=== PATIENT | female | born 1985 | race Caucasian/White ===

== ENCOUNTER → 2017-11-09 | Outpatient (CLI) | payer MEDICARE, OTHER ==
--- NOTE | 2017-11-09 15:28 | US ---
EXAMINATION TYPE: US liver DATE OF EXAM: 11/09/2017 COMPARISON: NONE CLINICAL HISTORY: R94.5 Abnormal Liver Function. EXAM MEASUREMENTS: Liver Length: 18.2 cm Gallbladder Wall: Surgically absent cm CBD: 0.5 cm Right Kidney: 9.6 x 4.2 x 4.8 cm Technically difficult exam due to midline bowel gas and body habitus Pancreas: visualized portions wnl Liver: difficult to penetrate . There is increased echogenicity of the hepatic parenchyma with dimin ished visualization of the portal triads most commonly relating to hepatic steatosis and limiting angel luation for underlying hepatic masses. Gallbladder: Surgically absent CBD: wnl Right Kidney: No hydronephrosis or masses seen IMPRESSION: 1. Findings most commonly related to hepatic steatosis, overall appearing mild in degree. 2. Surgical absence of the gallbladder. No common bile duct dilatation.
== END | disposition home or self-care (01) ==
LOC: RADUSWWP 14:10
PROVIDERS: ATTEND Family Medicine
DX: R94.5 Abnormal results of liver function studies (principal); Z90.49 Acquired absence of other specified parts of digestive tract
CPT/HCPCS: 76705

== ENCOUNTER 2018-05-12 11:55 | Emergency (ER) | payer MEDICARE, OTHER ==
[2018-05-12 12:01] VITALS: RESP 18; TEMP 98.2
[2018-05-12] MEDS ORDERED: SODIUM CHLORIDE 0.9% 1,000 ML IV STA ×2 (12:29)
[2018-05-12] MEDS ORDERED: KETOROLAC 30 MG/ML 1 ML VIAL IVP STA (12:55)
[2018-05-12] MEDS ORDERED: ONDANSETRON 4 MG/2 ML VIAL IVP STA (12:55)
[2018-05-12] MEDS ORDERED: SODIUM CHLORIDE 0.9% 1,000 ML IV ONE (12:55)
--- NOTE | 2018-05-12 12:57 | ED ---
Pediatric GI HPI - General Chief Complaint: Abdominal Pain Stated Complaint: vomiting/side pain Time Seen by Provider: 05/12/18 12:08 Source: patient, RN notes reviewed, old records reviewed Mode of arrival: ambulatory Limitations: no limitations - History of Present Illness Initial Comments: Patient is a 32-year-old female presents emergency room states. Nausea vomiting times one day. She reports she started vomiting last night. She complains of some back in abdominal discomfort. She denies any bloody stools or bloody emesis. Patient states that she's initiating urine UTI. She reports that she is not . She denies any other complaints. MD Complaint: nausea/vomiting - Related Data Home Medications Medication Instructions Recorded Confirmed Cetirizine HCl [Zyrtec] 10 mg PO DAILY 05/12/18 05/12/18 Cholestyramine/Aspartame [Questran 210 gm PO DAILY 05/12/18 05/12/18 Light Powder] Montelukast Sodium [Singulair] 10 mg PO DAILY 05/12/18 05/12/18 Norgestimate-Ethinyl Estradiol 1 tab PO DAILY 05/12/18 05/12/18 [Ortho Tri-Cyclen 28 Tablet] Ranitidine HCl [Zantac] 150 mg PO DAILY 05/12/18 05/12/18 Previous Rx's Medication Instructions Recorded Acetaminophen-Codeine 300-30mg 1 tab PO Q6H PRN 3 Days #12 tablet 05/12/18 [Tylenol w/codeine #3] Ondansetron [Zofran ODT] 4 mg PO Q8HR #20 tab 05/12/18 Tamsulosin [Flomax] 0.4 mg PO DAILY #10 cap 05/12/18 Allergies Allergy/AdvReac Type Severity Reaction Status Date / Time terbinafine [From Lamisil] Allergy Rash/Hives Verified 05/12/18 12:28 diazepam [From Valium] AdvReac Rapid Verified 05/12/18 12:28 Heart Rate Review of Systems ROS Statement: Those systems with pertinent positive or pertinent negative responses have been documented in the HPI. ROS Other: All systems not noted in ROS Statement are negative. Past Medical History Past Medical History: No Reported History Past Surgical History: Cholecystectomy, Orthopedic Surgery Additional Past Surgical History / Comment(s): right foot surgery, eye surgery Past Psychological History: Anxiety, Depression Smoking Status: Never smoker Past Alcohol Use History: None Reported Past Drug Use History: None Reported General Exam - General Exam Comments Initial Comments: This is a 32-year-old female. Alert and oriented 3. No significant distress. Limitations: no limitations General appearance: alert, in no apparent distress Eye exam: Present: normal appearance, PERRL, EOMI. Absent: scleral icterus, conjunctival injection, periorbital swelling ENT exam: Present: normal exam, mucous membranes moist Neck exam: Present: normal inspection. Absent: tenderness, meningismus, lymphadenopathy Respiratory exam: Present: normal lung sounds bilaterally. Absent: respiratory distress, wheezes, rales, rhonchi, stridor Cardiovascular Exam: Present: regular rate, normal rhythm, normal heart sounds. Absent: systolic murmur, diastolic murmur, rubs, gallop, clicks GI/Abdominal exam: Present: soft, tenderness (Left lower quadrant tenderness.), normal bowel sounds. Absent: distended, guarding, rebound, rigid Extremities exam: Present: normal inspection, full ROM, normal capillary refill. Absent: tenderness, pedal edema, joint swelling, calf tenderness Back exam: Present: normal inspection Neurological exam: Present: alert, oriented X3, CN II-XII intact Psychiatric exam: Present: normal affect, normal mood Skin exam: Present: warm, dry, intact, normal color. Absent: rash Course Vital Signs 05/12/18 05/12/18 11:58 15:34 Temperature 98.2 F Pulse Rate 84 85 Respiratory 18 18 Rate Blood Pressure 150/113 129/82 O2 Sat by Pulse 98 100 Oximetry Medical Decision Making - Medical Decision Making Patient is a 32-year-old female with 1 day of vomiting. She claims of some back and left lower quadrant pain. Lab work was reviewed. Leukocytosis noted likely related to patient's vomiting. Lab work including taking function liver function was normal. Urinalysis is positive for blood. Concern for a kidney stone. Patient had a computed tomography scan of her abdomen pelvis without contrast. Patient's CT shows a distal left ureter calculus measuring 3 mm. Patient advised this will pass without difficulty. I did discharge the Patient with a short course of pain medicine and nausea medicine and Flomax. Given doses in emergency department. Patient will be discharged to follow up with urology. All questions answered return parameters were discussed. Patient appears clinically well on discharge. - Lab Data Result diagrams: 05/12/18 12:40 05/12/18 12:40 Lab Results 05/12/18 05/12/18 05/12/18 Range/Units 12:40 12:40 12:40 WBC 18.9 H (3.8-10.6) k/uL RBC 4.82 (3.80-5.40) m/uL Hgb 14.0 (11.4-16.0) gm/dL Hct 42.9 (34.0-46.0) % MCV 89.1 (80.0-100.0) fL MCH 29.2 (25.0-35.0) pg MCHC 32.7 (31.0-37.0) g/dL RDW 14.1 (11.5-15.5) % Plt Count 335 (150-450) k/uL Neutrophils % 84 % Lymphocytes % 10 % Monocytes % 5 % Eosinophils % 1 % Basophils % 0 % Neutrophils # 15.8 H (1.3-7.7) k/uL Lymphocytes # 1.9 (1.0-4.8) k/uL Monocytes # 0.9 (0-1.0) k/uL Eosinophils # 0.1 (0-0.7) k/uL Basophils # 0.0 (0-0.2) k/uL PT 10.2 (9.0-12.0) sec INR 0.9 (<1.2) APTT 25.1 (22.0-30.0) sec Sodium 142 (137-145) mmol/L Potassium 3.9 (3.5-5.1) mmol/L Chloride 103 (98-107) mmol/L Carbon Dioxide 28 (22-30) mmol/L Anion Gap 11 mmol/L BUN 9 (7-17) mg/dL Creatinine 0.71 (0.52-1.04) mg/dL Est GFR (CKD-EPI)AfAm >90 (>60 ml/min/1.73 sqM) Est GFR (CKD-EPI)NonAf >90 (>60 ml/min/1.73 sqM) Glucose 107 H (74-99) mg/dL Calcium 9.7 (8.4-10.2) mg/dL Total Bilirubin 0.8 (0.2-1.3) mg/dL AST 51 H (14-36) U/L ALT 77 H (9-52) U/L Alkaline Phosphatase 126 (38-126) U/L Total Protein 8.0 (6.3-8.2) g/dL Albumin 4.6 (3.5-5.0) g/dL Amylase 45 (30-110) U/L Lipase 42 (23-300) U/L Urine Color Urine Appearance (Clear) Urine pH (5.0-8.0) Ur Specific [place] (1.001-1.035) Urine Protein (Negative) Urine Glucose (UA) (Negative) Urine Ketones (Negative) Urine Blood (Negative) Urine Nitrite (Negative) Urine Bilirubin (Negative) Urine Urobilinogen (<2.0) mg/dL Ur Leukocyte Esterase (Negative) Urine RBC (0-5) /hpf Urine WBC (0-5) /hpf Ur Squamous Epith Cells (0-4) /hpf Urine Mucus (None) /hpf Urine HCG, Qual (Not Detectd) 05/12/18 05/12/18 Range/Units 12:40 12:40 WBC (3.8-10.6) k/uL RBC (3.80-5.40) m/uL Hgb (11.4-16.0) gm/dL Hct (34.0-46.0) % MCV (80.0-100.0) fL MCH (25.0-35.0) pg MCHC (31.0-37.0) g/dL RDW (11.5-15.5) % Plt Count (150-450) k/uL Neutrophils % % Lymphocytes % % Monocytes % % Eosinophils % % Basophils % % Neutrophils # (1.3-7.7) k/uL Lymphocytes # (1.0-4.8) k/uL Monocytes # (0-1.0) k/uL Eosinophils # (0-0.7) k/uL Basophils # (0-0.2) k/uL PT (9.0-12.0) sec INR (<1.2) APTT (22.0-30.0) sec Sodium (137-145) mmol/L Potassium (3.5-5.1) mmol/L Chloride (98-107) mmol/L Carbon Dioxide (22-30) mmol/L Anion Gap mmol/L BUN (7-17) mg/dL Creatinine (0.52-1.04) mg/dL Est GFR (CKD-EPI)AfAm (>60 ml/min/1.73 sqM) Est GFR (CKD-EPI)NonAf (>60 ml/min/1.73 sqM) Glucose (74-99) mg/dL Calcium (8.4-10.2) mg/dL Total Bilirubin (0.2-1.3) mg/dL AST (14-36) U/L ALT (9-52) U/L Alkaline Phosphatase (38-126) U/L Total Protein (6.3-8.2) g/dL Albumin (3.5-5.0) g/dL Amylase (30-110) U/L Lipase (23-300) U/L Urine Color Yellow Urine Appearance Cloudy H (Clear) Urine pH 6.0 (5.0-8.0) Ur Specific [place] 1.016 (1.001-1.035) Urine Protein Trace H (Negative) Urine Glucose (UA) Negative (Negative) Urine Ketones 1+ H (Negative) Urine Blood Small H (Negative) Urine Nitrite Negative (Negative) Urine Bilirubin Negative (Negative) Urine Urobilinogen <2.0 (<2.0) mg/dL Ur Leukocyte Esterase Trace H (Negative) Urine RBC 16 H (0-5) /hpf Urine WBC 3 (0-5) /hpf Ur Squamous Epith Cells 1 (0-4) /hpf Urine Mucus Rare H (None) /hpf Urine HCG, Qual Not Detected (Not Detectd) - Radiology Data Radiology results: report reviewed Distal left ureteral chart of calculus. Perinephric inflammatory changes present on the left. The distal left ureter discussed case and measuring a proximal with 3-4 mm. Disposition Clinical Impression: Left ureteral stone, Nausea & vomiting Disposition: HOME SELF-CARE Condition: Good Instructions (If sedation given, give patient instructions): Kidney Stones (ED) Additional Instructions: Patient is to follow-up with primary care physician. Return to emergency department if any alarming signs or symptoms occur. Follow-up with urology as well. Patient should take the medication as prescribed. Encouraged fluid intake. Prescriptions: Acetaminophen-Codeine 300-30mg [Tylenol w/codeine #3] 1 tab PO Q6H PRN 3 Days # 12 tablet PRN Reason: Pain Ondansetron [Zofran ODT] 4 mg PO Q8HR #20 tab Tamsulosin [Flomax] 0.4 mg PO DAILY #10 cap Is patient prescribed a controlled substance at d/c from ED?: Yes When asked, does pt state using other controlled substances?: No If prescribed controlled substance>3 days was MAPS reviewed?: Prescribed <3 Days If opioid is for acute pain is fill amount 7 days or less?: Yes If Rx opioid, was Start Talking consent form obtained?: Yes Referrals: Dora Loaiza MD [Primary Care Provider] - 1-2 days Dennis Lerner MD [STAFF PHYSICIAN] - 1-2 days Time of Disposition: 15:16
[2018-05-12] MEDS ORDERED: SODIUM CHLORIDE 0.9% 1,000 ML IV SCH (13:00)
[2018-05-12 13:13] LABS: Basophils % (A) 0 %; Eosinophils # (A) 0.1 k/uL (0-0.7); Eosinophils % (A) 1 %; HCT 42.9 % (34.0-46.0); Lymphocytes # (A) 1.9 k/uL (1.0-4.8); Lymphocytes % (A) 10 %; MCH 29.2 pg (25.0-35.0); MCHC 32.7 g/dL (31.0-37.0); MCV 89.1 fL (80.0-100.0); Mean Platelet Volume 6.7; Monocytes # (A) 0.9 k/uL (0-1.0); Monocytes % (A) 5 %; Neutrophils # (A) 15.8 k/uL (1.3-7.7); Neutrophils % (A) 84 %; Platelet Count 335 k/uL (150-450); RBC 4.82 m/uL (3.80-5.40); RDW 14.1 % (11.5-15.5); WBC 18.9 k/uL (3.8-10.6)
[2018-05-12 13:23] LABS: ALT 77 U/L (9-52); AST 51 U/L (14-36); Albumin 4.6 g/dL (3.5-5.0); Alkaline Phosphatase 126 U/L (38-126); Amylase 45 U/L (30-110); Anion Gap 11 mmol/L; Blood Urea Nitrogen 9 mg/dL (7-17); Calcium 9.7 mg/dL (8.4-10.2); Carbon Dioxide 28 mmol/L (22-30); Chloride 103 mmol/L (98-107); Glucose 107 mg/dL (74-99); Lipase 42 U/L (23-300); Potassium 3.9 mmol/L (3.5-5.1); Sodium 142 mmol/L (137-145); Total Bilirubin 0.8 mg/dL (0.2-1.3)
[2018-05-12 13:31] LABS: Appearance,Urine Cloudy (Clear); Bilirubin,Urine Negative (Negative); Blood,Urine Small (Negative); Color,Urine Yellow; Glucose,Urine (UA) Negative (Negative); INR 0.9 (<1.2); Ketones,Urine 1+ (Negative); Leukocyte Esterase,Urine Trace (Negative); Mucus,Urine Rare /hpf; Nitrite,Urine Negative (Negative); Partial Thromboplastin Time 25.1 sec (22.0-30.0); Protein,Urine Trace (Negative); Prothrombin Time 10.2 sec (9.0-12.0); RBC,Urine 16 /hpf (0-5); Specific Gravity,Urine 1.016 (1.001-1.035); Squamous Epithelial Cell,Urine 1 /hpf (0-4); Urobilinogen,Urine <2.0 mg/dL (<2.0); WBC,Urine 3 /hpf (0-5)
--- NOTE | 2018-05-12 13:53 | XR ---
Abdomen HISTORY: Pain, nausea and vomiting Frontal view the abdomen on 2 images correlated to prior abdomen dated 10/31/2009 Surgical clips are present in the right upper quadrant. Lung bases are clear. No evident pneumoperito neum or bowel obstruction. IMPRESSION: Nonobstructive bowel gas pattern.
--- NOTE | 2018-05-12 14:51 | CT ---
EXAMINATION TYPE: CT abdomen pelvis wo con DATE OF EXAM: 05/12/2018 COMPARISON: Abdomen film same date HISTORY: Left flank pain and nausea. CT DLP: 1608 mGycm Automated exposure control for dose reduction was used. TECHNIQUE: Helical acquisition of images from the lung bases through the pelvis. FINDINGS: Lack of intravenous contrast and patient body habitus could compromise sensitivity. LUNG BASES: No significant abnormality is appreciated. AORTA: No significant abnormality is appreciated. LIVER/GB: Liver shows low attenuation likely due to hepatic steatosis. Liver is enlarged. Gallbladder is absent. PANCREAS: No significant abnormality is seen. SPLEEN: No significant abnormality is seen. ADRENALS: No significant abnormality is seen. KIDNEYS: There is left-sided hydronephrosis and hydroureter present. Perinephric inflammatory change is present on the left. At the level of the distal left ureter suspect there is a calcification prese nt measuring approximately 3 to 4 mm. In retrospect this is noted on patient's plain film. REPRODUCTIVE ORGANS: No significant abnormality is seen. URINARY BLADDER: No significant abnormality is seen. BOWEL: No significant abnormality is seen. FREE AIR: No Free Air is visible. ASCITES: None visible. PELVIC ADENOPATHY: None visualized. RETROPERITONEAL ADENOPATHY: No Retroperitoneal Adenopathy visible. OSSEOUS STRUCTURES: No significant abnormality is seen. IMPRESSION: DISTAL LEFT URETERAL OBSTRUCTIVE CALCULUS
[2018-05-12] MEDS ORDERED: TAMSULOSIN 0.4 MG CAP.ER.24H PO STA (15:16)
[2018-05-12 15:35] VITALS: BP 129/82; PULSE 85
== END 2018-05-12 15:49 | disposition home or self-care (01) ==
LOC: EC 11:55
DX: N20.1 Calculus of ureter (principal); D72.829 Elevated white blood cell count, unspecified; Z90.49 Acquired absence of other specified parts of digestive tract; Z79.3 Long term (current) use of hormonal contraceptives; Z79.899 Other long term (current) drug therapy; Z88.8 Allergy status to other drugs, medicaments and biological substances; Z53.8 Procedure and treatment not carried out for other reasons
CPT/HCPCS: 99285; 96374; 96375; 96361 ×2; 36415; 80053; 82150; 83690; 85025; 85610; 85730; 81001; 81025; 87086; 74018; 74176; J2405; J1885

== ENCOUNTER → 2018-12-17 | Outpatient (CLI) | payer MEDICARE, OTHER ==
--- NOTE | 2018-12-17 13:22 | US ---
EXAMINATION TYPE: US venous doppler duplex LE RT DATE OF EXAM: 12/17/2018 1:02 PM COMPARISON: NONE CLINICAL HISTORY: RLE Pain in right foot M79.671.... Right foot bone spurs SIDE PERFORMED: Right TECHNIQUE: The lower extremity deep venous system is examined utilizing real time linear array sonog sharlene with graded compression, doppler sonography and color-flow sonography. VESSELS IMAGED: External Iliac Vein (EIV) Common Femoral Vein Deep Femoral Vein Greater Saphenous Vein * Femoral Vein Popliteal Vein Small Saphenous Vein * Proximal Calf Veins (* superficial vessels) Grayscale, color doppler, spectral doppler imaging performed of the deep veins of the right lower ext remity. There is normal flow, compressibility, vascular waveforms. Right Leg: Negative for DVT IMPRESSION: No sonographic evidence of deep thrombosis within the right lower extremity.
== END | disposition home or self-care (01) ==
LOC: RADUSWWP 12:40
PROVIDERS: ATTEND Orthopaedic Surgery
DX: I80.3 Phlebitis and thrombophlebitis of lower extremities, unspecified (principal); M76.61 Achilles tendinitis, right leg; I10 Essential (primary) hypertension; E03.8 Other specified hypothyroidism; Z68.43 Body mass index [BMI] 50.0-59.9, adult

== ENCOUNTER → 2020-06-23 | Outpatient (CLI) | payer MEDICARE, OTHER ==
[2020-06-23 09:16] VITALS: BP 105/73; PULSE 64; RESP 16; TEMP 98.2
--- NOTE | 2020-06-23 09:22 | P.PAINCN ---
History of Present Illness - Reason for Consult Consult date: 06/23/20 - History of Present Illness This is a 34-year-old patient referred by Dr. Catherine with a chief complaint of chronic pain in her occipital region. Has a history of chronic migraine headaches. Patient notes that she has headaches every day of the month and it is hard to quantify how long they last that she feels like she is in constant pain. Triggers include light, noises, and various stents. Pain is generally global however in the last 1-2 months she has noticed shooting stabbing pain in the back of her head which occasionally radiates into her spine. This occurs several times throughout the day and is episodic in nature. Currently a 9 out of 10, at its best 7 out of 10, at its worst a 10 out of 10. In terms of management she has tried Topamax, Naprosyn, Excedrin with no relief. She has not tried any other medications. She has never had any pain injections. In addition to above, 13-point review of systems is also negative for chest pain, shortness of breath, changes in vision, changes in hearing, new onset weakness, abdominal pain, diarrhea, extreme fatigue, malaise, fever, skin changes, homicidal or suicidal ideation, or bowel or bladder incontinence. Physical exam: Vital Signs: Reviewed in EMR GENERAL: Well appearing, in no acute distress PSYCH: Mood and affect is appropriate. Awake, alert, and oriented SKIN: Skin color, texture, turgor normal, no rashes or lesions HEENT: Normocephalic, atraumatic. EOM intact CV: No pedal edema RESP: Respirations are unlabored, no audible wheezing GI: Abdomen non-distended MUSCULOSKELETAL: Neck: pain to palpation over the cervical paraspinous muscles. TTP over RAJ and IBIS region. Intact flexion, limited extension due to pain. . Normal cervical lordotic curve and normal cervical spine range of motion NEUR: Bilateral upper and lower extremity coordination and muscle stretch reflexes are physiologic and symmetric. Negative clonus. No loss of sensation is noted. Cranial nerves are grossly intact. Imaging: Cervical MRI 05/2020 C2-C3 is benign C3-C4 is benign excellent or C5 shows a small right disc protrusion. stenosis. C5-C6 is benign C6-C7 small posterior disc bulge otherwise benign C7-T1 benign. Overall relatively benign cervical MRI with a small right paracentral disc protrusion with no stenosis C4-C5 and a slight disc bulge at C6-C7 with no canal stenosis Assessment: 1. Bilateral occipital neuralgia 2. Chronic daily migraine headaches Plan: 1. Explanation: Diagnoses, prognoses, and multiple treatment options including but not limited to physical therapy, interventional therapies, medication management and surgery were discussed with the patient and all questions were answered to the patient's satisfaction. 2. Investigations: none 3. Counseling: None today 4. Procedures: Schedule for bilateral occipital nerve block 5. Consultations: Continue to follow up with Dr Catherine, might be a good candidate for Ajovy or Emgality in the future however I defer to Dr Catherine 6. Medications: continue home regimen 7. Disposition: I spent 45 minutes on patient care today. The time was used to review medical records including relevant urine studies and prescription history (MAPs), review of the available imaging, evaluation and examination the patient, coordination of care at the medical staff and if applicable referring physicians, as well as creation of the medical record. Past Medical History Past Medical History: GERD/Reflux, Thyroid Disorder Additional Past Medical History / Comment(s): DUMPING SYNDROME History of Any Multi-Drug Resistant Organisms: None Reported Past Surgical History: Cholecystectomy, Orthopedic Surgery Additional Past Surgical History / Comment(s): right foot surgery, eye surgery, RT ACHILLES SX Past Anesthesia/Blood Transfusion Reactions: No Reported Reaction Smoking Status: Never smoker - Past Family History Mother Family Medical History: Cancer Father Family Medical History: Cancer Medications and Allergies Home Medications Medication Instructions Recorded Confirmed Type Cetirizine HCl [Zyrtec] 10 mg PO DAILY 05/12/18 06/21/20 History Cholestyramine/Aspartame [Questran 210 gm PO DAILY 05/12/18 06/21/20 History Light Powder] Norgestimate-Ethinyl Estradiol 1 tab PO DAILY 05/12/18 06/21/20 History [Ortho Tri-Cyclen 28 Tablet] Levothyroxine Sodium [Synthroid] 75 mcg PO DAILY 06/21/20 06/21/20 History Omeprazole 20 mg PO DAILY 06/21/20 06/21/20 History clonazePAM [KlonoPIN] 0.5 mg PO HS 06/21/20 06/21/20 History Allergies Allergy/AdvReac Type Severity Reaction Status Date / Time terbinafine [From Lamisil] Allergy Rash/Hives Verified 06/21/20 15:17 diazepam [From Valium] AdvReac Rapid Verified 06/21/20 15:17 Heart Rate PQRS Measure Charge Sheet PQRS Narrative: Smoking Status Never smoker Pain Intensity [Posterior 4 Occipital] Scale Used Numeric (1 - 10) Hx Alcohol Use (MH) No Home Medications: Ambulatory Orders Cetirizine HCl [Zyrtec] 10 mg PO DAILY 05/12/18 Cholestyramine/Aspartame [Questran Light Powder] 210 gm PO DAILY 05/12/18 Norgestimate-Ethinyl Estradiol [Ortho Tri-Cyclen 28 Tablet] 1 tab PO DAILY 05/12/18 Levothyroxine Sodium [Synthroid] 75 mcg PO DAILY 06/21/20 Omeprazole 20 mg PO DAILY 06/21/20 clonazePAM [KlonoPIN] 0.5 mg PO HS 06/21/20
== END ==
LOC: PNWHC3 09:02
PROVIDERS: ATTEND Anesthesiology
DX: M54.18 Radiculopathy, sacral and sacrococcygeal region (principal); G43.909 Migraine, unspecified, not intractable, without status migrainosus
CPT/HCPCS: 99211

== ENCOUNTER 2020-07-13 11:40 | Day surgery (SDC) | payer MEDICARE, OTHER ==
[2020-07-09 15:23] VITALS: BMI 40.0
[~2020-07-13 11:40] MED LIST: LACTATED RINGERS 1,000 ML IV SCH
[2020-07-13 12:07] VITALS: RESP 16; TEMP 98.1
[2020-07-13] MEDS ORDERED: LIDOCAINE 1% (10MG/ML) FOR IV START INTRADERMA ONE (12:11)
[2020-07-13] MEDS ORDERED: fentaNYL (PF) 50 MCG/ML 2 ML AMP ONE (13:10)
[2020-07-13] MEDS ORDERED: MIDAZOLAM 2 MG/2 ML VIAL ONE (13:10)
[2020-07-13] MEDS ORDERED: ROPIVACAINE 5MG/ML 20ML VIAL ONE (13:10)
[2020-07-13] MEDS ORDERED: DEXAMETHASONE SOD PHOSPHATE 10 MG/ML 1 ML VIAL ONE (13:10)
--- NOTE | 2020-07-13 13:19 | P.PCN ---
Date of Procedure: 07/13/20 Surgeon: Soledad Cyr Pathology: none sent Condition: stable Disposition: PACU Description of Procedure: Pre-operative diagnosis: 1- occipital neuralgea Post Operative Diagnosis 1- occipital neuralgea Procedure: 1- bilateral occipital nerve block ANESTHESIA: IV Moderate conscious sedation EBL: Minimal PROCEDURE INDICATION: The patient with neck pain and headache secondary to occipital neuralgea unresponsive to conservative treatments. PROCEDURE DESCRIPTION / TECHNIQUE: The patient was seen and identified in the preoperative area. Risks, benefits, complications, and alternatives were discussed with the patient, the patient agreed to proceed with the procedure and signed the consent. IV was started. Vital signs remained stable throughout the procedure. Patient was taken to the OR and time out was completed. The patient was placed in the prone position on the procedure table. A pillow was placed under the patients chest to increase the cervical interlaminar space. The cervical area and right occiptial area were prepped with chloraprep. Critical pause was taken. Vital signs were closely monitored during the procedure. Conscious sedation was used during the procedure to decrease patients anxiety. The the occipital exuberance and superior nuchal line were identified on the right side of the occiput. The greater occipital nerve location was estimated to be medial to the occipital artery I used 25-gauge 1-1/2 inch needle to go through the skin and infiltrate 2.5 MLS of a solution made up of 4 MLS Marcaine 0.5% +10 mg of decadron. The procedure was done on the opposite side in the same manner using 2.5 MLS of the above-mentioned solution. Patient tolerated procedure well.
[2020-07-13] MEDS ORDERED: IV FLUID CONTINUATION 600 ML IV ONE (13:24)
[2020-07-13 14:09] VITALS: BP 142/71; PULSE 71
== END 2020-07-13 14:10 | disposition home or self-care (01) ==
LOC: ORPAIN 11:40
PROVIDERS: ATTEND Anesthesiology
DX: M54.81 Occipital neuralgia (principal); K21.9 Gastro-esophageal reflux disease without esophagitis
CPT/HCPCS: 81025; 64405; J2250; J1100; J3010; J2795

== ENCOUNTER → 2020-08-20 | Outpatient (CLI) | payer MEDICARE, OTHER ==
[2020-08-21 06:05] LABS: Gliadin AB IgG, Deaminated NEGATIVE (NEGATIVE)
[2020-08-21 22:31] LABS: Gliadin AB IgA, Deaminated NEGATIVE (NEGATIVE); Gliadin AB IgA, Unit <0.2 U/mL
== END | disposition home or self-care (01) ==
LOC: LABWHC1 08:36
PROVIDERS: ATTEND Internal Medicine Gastroenterology
DX: G62.9 Polyneuropathy, unspecified (principal); K52.9 Noninfective gastroenteritis and colitis, unspecified
CPT/HCPCS: 36415; 82656; 82705; 83516; 83993; 87045; 87046; 87329

== ENCOUNTER 2021-02-26 13:50 | Emergency (ER) | payer MEDICARE, OTHER ==
[2021-02-26 14:36] VITALS: TEMP 97.9
--- NOTE | 2021-02-26 15:27 | XR ---
KUB. HISTORY: Abdominal pain COMPARISON: 05/12/2018. TECHNIQUE: 2 upright views the abdomen were obtained. FINDINGS: Lung bases are clear. There is no free intraperitoneal air. There are surgical clips in the right upp er quadrant consistent with cholecystectomy. In the left mid abdomen there is a suggestion of a mildly dilated loop of small bowel which could rep resent a focal ileus. No suspicious calcification is seen. The osseous structures are intact. IMPRESSION: Cannot exclude a focal ileus in the left mid abdomen
--- NOTE | 2021-02-26 15:38 | ED ---
General Adult HPI - General Chief complaint: Abdominal Pain Stated complaint: Constipation Time Seen by Provider: 02/26/21 15:04 Source: patient, RN notes reviewed, old records reviewed Mode of arrival: ambulatory Limitations: no limitations - History of Present Illness Initial comments: Well-appearing 35-year-old female presents to the emergency room with complaints of abdominal pain and constipation for the past 3 days. Patient states that she was having diarrhea and has a history of what her primary care doctor told her is dumping syndrome. She has seen a GI doctor in the past but was never officially diagnosed. She also has irritable bowel syndrome. She states that she is using Imodium and Pepto-Bismol to stop the diarrhea because she's been under a lot of stress. She states that she has not had a bowel movement in the past 3 days. She tried a tea laxative with no results. She states that her abdomen is tender and now she feels pressure when she tries to urinate. She denies any dysuria. She denies any nausea ,vomiting or diarrhea. She states that she is passing some gas. She denies any fevers. -: week(s) (1) Location: abdomen Radiation: non-radiation Severity scale (1-10): 4 Quality: aching Consistency: intermittent Improves with: none Worsens with: none Associated Symptoms: other (Constipation) Treatments Prior to Arrival: other (Imodium and Pepto-Bismol this week, and tea laxative today) - Related Data Home Medications Medication Instructions Recorded Confirmed Cetirizine HCl [Zyrtec] 10 mg PO DAILY 05/12/18 07/13/20 Cholestyramine/Aspartame [Questran 210 gm PO DAILY 05/12/18 07/13/20 Light Powder] Norgestimate-Ethinyl Estradiol 1 tab PO DAILY 05/12/18 07/13/20 [Ortho Tri-Cyclen 28 Tablet] Levothyroxine Sodium [Synthroid] 75 mcg PO DAILY 06/21/20 07/13/20 Omeprazole 20 mg PO DAILY 06/21/20 07/13/20 clonazePAM [KlonoPIN] 0.5 mg PO HS 06/21/20 07/13/20 Allergies Allergy/AdvReac Type Severity Reaction Status Date / Time terbinafine [From Lamisil] Allergy Rash/Hives Verified 02/26/21 14:38 diazepam [From Valium] AdvReac Rapid Verified 02/26/21 14:38 Heart Rate Review of Systems ROS Statement: Those systems with pertinent positive or pertinent negative responses have been documented in the HPI. ROS Other: All systems not noted in ROS Statement are negative. Past Medical History Past Medical History: GERD/Reflux, Thyroid Disorder Additional Past Medical History / Comment(s): DUMPING SYNDROME History of Any Multi-Drug Resistant Organisms: None Reported Past Surgical History: Cholecystectomy, Orthopedic Surgery Additional Past Surgical History / Comment(s): right foot surgery, eye surgery, RT ACHILLES SX Past Anesthesia/Blood Transfusion Reactions: No Reported Reaction Past Psychological History: Anxiety, Depression Smoking Status: Never smoker - Past Family History Mother Family Medical History: Cancer Father Family Medical History: Cancer General Exam Limitations: no limitations General appearance: alert, in no apparent distress Head exam: Present: atraumatic, normocephalic, normal inspection Eye exam: Present: normal appearance, EOMI. Absent: scleral icterus, conjunctival injection, periorbital swelling ENT exam: Present: normal exam, normal oropharynx, mucous membranes moist Neck exam: Present: normal inspection. Absent: tenderness, meningismus, lymphadenopathy Respiratory exam: Present: normal lung sounds bilaterally. Absent: respiratory distress, wheezes, rales, rhonchi, stridor Cardiovascular Exam: Present: regular rate, normal rhythm, normal heart sounds. Absent: systolic murmur, diastolic murmur, rubs, gallop, clicks GI/Abdominal exam: Present: soft. Absent: distended, tenderness Extremities exam: Present: normal inspection, full ROM, normal capillary refill. Absent: tenderness, pedal edema, joint swelling, calf tenderness Back exam: Absent: tenderness, CVA tenderness (R), CVA tenderness (L) Neurological exam: Present: alert, oriented X3, normal gait Psychiatric exam: Present: normal affect, normal mood Skin exam: Present: warm, dry, intact, normal color. Absent: rash, cyanosis, diaphoretic Course Vital Signs 02/26/21 02/26/21 14:33 17:51 Temperature 97.9 F Pulse Rate 65 72 Respiratory 19 18 Rate Blood Pressure 141/88 127/85 O2 Sat by Pulse 98 100 Oximetry Medical Decision Making - Medical Decision Making This is a well-appearing 35-year-old female presents with complaints of constipation. Patient states that she has dumping syndrome and irritable bowel syndrome and has been having significant diarrhea for the past week. She started taking Imodium and Pepto-Bismol and now has not had a bowel movement in 3 days. She states that she is passing some gas. Her abdomen is soft and nontender. X- ray of the abdomen shows a mildly dilated loop of small bowel that could represent a focal ileus. She is afebrile and vital signs are stable. She denies any nausea or vomiting. She'll be directed to discontinue Imodium and Pepto-Bismol, increase her fluid intake. Return to the emergency room with any new or worsening symptoms including nausea, vomiting or increase in abdominal pain. I did direct her to follow up with her primary care doctor next week. Case discussed with Dr. Root. - Lab Data Lab Results 02/26/21 02/26/21 Range/Units 16:37 16:37 Urine Color Yellow Urine Appearance Clear (Clear) Urine pH 6.0 (5.0-8.0) Ur Specific [place] 1.011 (1.001-1.035) Urine Protein Negative (Negative) Urine Glucose (UA) Negative (Negative) Urine Ketones Negative (Negative) Urine Blood Negative (Negative) Urine Nitrite Negative (Negative) Urine Bilirubin Negative (Negative) Urine Urobilinogen <2.0 (<2.0) mg/dL Ur Leukocyte Esterase Negative (Negative) Urine HCG, Qual Not Detected (Not Detectd) Disposition Clinical Impression: Constipation Disposition: HOME SELF-CARE Condition: Good Additional Instructions: Discontinue Imodium and Pepto-Bismol. Increase your fluid intake. Return to the emergency room with any new or worsening symptoms including fevers, nausea, vomiting or increase in abdominal pain. Follow up with your primary care doctor next week. Is patient prescribed a controlled substance at d/c from ED?: No Referrals: Dora Loaiza MD [Primary Care Provider] - 1-2 days Time of Disposition: 17:48
[2021-02-26 16:56] LABS: Appearance,Urine Clear (Clear); Bilirubin,Urine Negative (Negative); Blood,Urine Negative (Negative); Color,Urine Yellow; Glucose,Urine (UA) Negative (Negative); Ketones,Urine Negative (Negative); Leukocyte Esterase,Urine Negative (Negative); Nitrite,Urine Negative (Negative); Protein,Urine Negative (Negative); Specific Gravity,Urine 1.011 (1.001-1.035); Urobilinogen,Urine <2.0 mg/dL (<2.0)
[2021-02-26 17:52] VITALS: BP 127/85; PULSE 72; RESP 18
== END 2021-02-26 18:22 | disposition home or self-care (01) ==
LOC: EC 13:50
DX: K59.00 Constipation, unspecified (principal); K21.9 Gastro-esophageal reflux disease without esophagitis; F32.9 Major depressive disorder, single episode, unspecified; F41.9 Anxiety disorder, unspecified; Z79.890 Hormone replacement therapy; Z79.899 Other long term (current) drug therapy; Z90.49 Acquired absence of other specified parts of digestive tract
CPT/HCPCS: 74018; 81003; 81025; 99284

== ENCOUNTER 2021-02-28 09:21 | Emergency (ER) | payer MEDICARE, OTHER ==
--- NOTE | 2021-02-28 12:04 | ED ---
General Adult HPI - General Source: RN notes reviewed <Juan Beasley - Last Filed: 02/28/21 11:59> <Nitza Dangelo - Last Filed: 02/28/21 20:39> - General Stated complaint: Revisit- 02-26 Constipated - History of Present Illness Initial comments: 35-year-old female presents to the emergency room for "severe bowel issues." Patient states she was seen in the ER on Sunday and told she had slowed bowels but no obstruction. Patient states that she is having small bardened chunks of bowel movements. States that pain at rest is currently 4/10 and worsens when trying to have bowel movements. Pt usually takes immodium daily but hasnt taken it over the weekend because of this diarrhea. pt denies SOB, CP, nausea or vomiting, headache, or visual changes. (Juan Beasley) - Related Data Home Medications Medication Instructions Recorded Confirmed Cetirizine HCl [Zyrtec] 10 mg PO DAILY 05/12/18 07/13/20 Cholestyramine/Aspartame [Questran 210 gm PO DAILY 05/12/18 07/13/20 Light Powder] Norgestimate-Ethinyl Estradiol 1 tab PO DAILY 05/12/18 07/13/20 [Ortho Tri-Cyclen 28 Tablet] Levothyroxine Sodium [Synthroid] 75 mcg PO DAILY 06/21/20 07/13/20 Omeprazole 20 mg PO DAILY 06/21/20 07/13/20 clonazePAM [KlonoPIN] 0.5 mg PO HS 06/21/20 07/13/20 Allergies Allergy/AdvReac Type Severity Reaction Status Date / Time terbinafine [From Lamisil] Allergy Rash/Hives Verified 02/28/21 12:03 diazepam [From Valium] AdvReac Rapid Verified 02/28/21 12:03 Heart Rate Review of Systems ROS Other: All systems not noted in ROS Statement are negative. <Juan Beasley - Last Filed: 02/28/21 11:59> ROS Other: All systems not noted in ROS Statement are negative. <Nitza Dangelo - Last Filed: 02/28/21 20:39> ROS Statement: Those systems with pertinent positive or pertinent negative responses have been documented in the HPI. Past Medical History Past Medical History: GERD/Reflux, Thyroid Disorder Additional Past Medical History / Comment(s): DUMPING SYNDROME History of Any Multi-Drug Resistant Organisms: None Reported Past Surgical History: Cholecystectomy, Orthopedic Surgery Additional Past Surgical History / Comment(s): right foot surgery, eye surgery, RT ACHILLES SX Past Anesthesia/Blood Transfusion Reactions: No Reported Reaction Past Psychological History: Anxiety, Depression Smoking Status: Never smoker - Past Family History Mother Family Medical History: Cancer Father Family Medical History: Cancer <Juan Beasley P - Last Filed: 02/28/21 11:59> General Exam General appearance: alert Head exam: Present: atraumatic Eye exam: Present: normal appearance, PERRL, EOMI. Absent: scleral icterus ENT exam: Present: normal exam, mucous membranes moist Neck exam: Present: normal inspection Respiratory exam: Absent: respiratory distress GI/Abdominal exam: Present: soft, tenderness (minimal generalized abdominal tenderness), normal bowel sounds. Absent: distended <Juan Beasley P - Last Filed: 02/28/21 11:59> Limitations: no limitations General appearance: alert, in no apparent distress, other (Well-developed, well- nourished female in no acute distress. Initial temperature 97.7, pulse 89, respirations 18, blood pressure 119/77, pulse ox 98% on room air.) ENT exam: Present: normal exam, mucous membranes moist Respiratory exam: Present: normal lung sounds bilaterally. Absent: respiratory distress, wheezes, rales, rhonchi, stridor Cardiovascular Exam: Present: regular rate, normal rhythm, normal heart sounds. Absent: systolic murmur, diastolic murmur, rubs, gallop, clicks GI/Abdominal exam: Present: soft, tenderness, normal bowel sounds Back exam: Absent: CVA tenderness (R), CVA tenderness (L) Neurological exam: Present: alert, oriented X3 Psychiatric exam: Present: anxious Skin exam: Present: warm, dry, intact, normal color. Absent: rash <Nitza Dangelo - Last Filed: 02/28/21 20:39> Course <Nitza Dangelo - Last Filed: 02/28/21 20:39> Vital Signs 02/28/21 02/28/21 11:59 18:26 Pulse Rate 89 91 Respiratory 18 16 Rate Blood Pressure 119/77 117/87 O2 Sat by Pulse 98 99 Oximetry - Reevaluation(s) Reevaluation #1: 02/28/21 16:05 Attempted to see patient for evaluation. Stretcher is unoccupied at this time, belongings are on bed. 02/28/21 16:30 Second attempt to see patient for evaluation. Stretcher is unoccupied at this moment but belongings remain on the bed. 02/28/21 16:45 Third attempt to see patient for evaluation. Stretcher is unoccupied at this moment but belongings remain on the bed. (Nitza Dangelo) Medical Decision Making - Lab Data Result diagrams: 02/28/21 12:14 02/28/21 12:14 - Radiology Data Radiology results: report reviewed, image reviewed <Nitza Dangelo - Last Filed: 02/28/21 20:39> - Medical Decision Making 35-year-old female with a history of dumping syndrome and frequent Imodium use, presents to the emergency Department with complaints of constipation 5-6 days. Upon exam, patient complains of diffuse lower abdominal tenderness. Bowel sounds are active; patient has been up several times to the bathroom and is passing small hard formed stool. She is afebrile and not tachycardic. La boratory studies were reviewed and show no significant findings. X-ray of the abdomen shows extensive retained fecal debris throughout the colon. Fleets enema was suggested for a one-time use at home. Explained that she may repeat it in 24-48 hours however was cautioned to be mindful of her predisposition to diarrhea. Patient was encouraged to increase her intake of oral fluids and fiber. Also suggested use of Colace 1-2 times daily, not to exceed 3-5 days. Patient will be discharged home to follow up with her primary care provider for a recheck. Return parameters were discussed in detail. Patient verbalizes understanding and agrees with this plan. This patient's care was discussed with my attending Dr. Allen. (Nitza Dangelo) - Lab Data Lab Results 02/28/21 02/28/21 02/28/21 Range/Units 12:14 12:14 15:09 WBC 11.4 H (3.8-10.6) k/uL RBC 4.67 (3.80-5.40) m/uL Hgb 14.2 (11.4-16.0) gm/dL Hct 43.3 (34.0-46.0) % MCV 92.6 (80.0-100.0) fL MCH 30.4 (25.0-35.0) pg MCHC 32.8 (31.0-37.0) g/dL RDW 12.7 (11.5-15.5) % Plt Count 307 (150-450) k/uL MPV 7.0 Neutrophils % 79 % Lymphocytes % 14 % Monocytes % 4 % Eosinophils % 2 % Basophils % 1 % Neutrophils # 9.0 H (1.3-7.7) k/uL Lymphocytes # 1.6 (1.0-4.8) k/uL Monocytes # 0.4 (0-1.0) k/uL Eosinophils # 0.2 (0-0.7) k/uL Basophils # 0.1 (0-0.2) k/uL Sodium 139 (137-145) mmol/L Potassium 4.1 (3.5-5.1) mmol/L Chloride 104 (98-107) mmol/L Carbon Dioxide 26 (22-30) mmol/L Anion Gap 9 mmol/L BUN 7 (7-17) mg/dL Creatinine 0.51 L (0.52-1.04) mg/dL Est GFR (CKD-EPI)AfAm >90 (>60 ml/min/1.73 sqM) Est GFR (CKD-EPI)NonAf >90 (>60 ml/min/1.73 sqM) Glucose 116 H (74-99) mg/dL Calcium 9.4 (8.4-10.2) mg/dL Total Bilirubin 0.5 (0.2-1.3) mg/dL AST 22 (14-36) U/L ALT 16 (4-34) U/L Alkaline Phosphatase 87 (38-126) U/L Total Protein 7.7 (6.3-8.2) g/dL Albumin 4.4 (3.5-5.0) g/dL Lipase 48 (23-300) U/L Urine Color Yellow Urine Appearance Cloudy H (Clear) Urine pH 6.0 (5.0-8.0) Ur Specific [place] 1.024 (1.001-1.035) Urine Protein Trace H (Negative) Urine Glucose (UA) Negative (Negative) Urine Ketones Trace H (Negative) Urine Blood Negative (Negative) Urine Nitrite Negative (Negative) Urine Bilirubin Negative (Negative) Urine Urobilinogen <2.0 (<2.0) mg/dL Ur Leukocyte Esterase Negative (Negative) Urine RBC 2 (0-5) /hpf Urine WBC 1 (0-5) /hpf Ur Squamous Epith Cells 1 (0-4) /hpf Urine Bacteria Rare H (None) /hpf Hyaline Casts 1 (0-2) /lpf Urine Mucus Many H (None) /hpf Urine HCG, Qual (Not Detectd) 02/28/21 Range/Units 15:09 WBC (3.8-10.6) k/uL RBC (3.80-5.40) m/uL Hgb (11.4-16.0) gm/dL Hct (34.0-46.0) % MCV (80.0-100.0) fL MCH (25.0-35.0) pg MCHC (31.0-37.0) g/dL RDW (11.5-15.5) % Plt Count (150-450) k/uL MPV Neutrophils % % Lymphocytes % % Monocytes % % Eosinophils % % Basophils % % Neutrophils # (1.3-7.7) k/uL Lymphocytes # (1.0-4.8) k/uL Monocytes # (0-1.0) k/uL Eosinophils # (0-0.7) k/uL Basophils # (0-0.2) k/uL Sodium (137-145) mmol/L Potassium (3.5-5.1) mmol/L Chloride (98-107) mmol/L Carbon Dioxide (22-30) mmol/L Anion Gap mmol/L BUN (7-17) mg/dL Creatinine (0.52-1.04) mg/dL Est GFR (CKD-EPI)AfAm (>60 ml/min/1.73 sqM) Est GFR (CKD-EPI)NonAf (>60 ml/min/1.73 sqM) Glucose (74-99) mg/dL Calcium (8.4-10.2) mg/dL Total Bilirubin (0.2-1.3) mg/dL AST (14-36) U/L ALT (4-34) U/L Alkaline Phosphatase (38-126) U/L Total Protein (6.3-8.2) g/dL Albumin (3.5-5.0) g/dL Lipase (23-300) U/L Urine Color Urine Appearance (Clear) Urine pH (5.0-8.0) Ur Specific [place] (1.001-1.035) Urine Protein (Negative) Urine Glucose (UA) (Negative) Urine Ketones (Negative) Urine Blood (Negative) Urine Nitrite (Negative) Urine Bilirubin (Negative) Urine Urobilinogen (<2.0) mg/dL Ur Leukocyte Esterase (Negative) Urine RBC (0-5) /hpf Urine WBC (0-5) /hpf Ur Squamous Epith Cells (0-4) /hpf Urine Bacteria (None) /hpf Hyaline Casts (0-2) /lpf Urine Mucus (None) /hpf Urine HCG, Qual Not Detected (Not Detectd) - Radiology Data KUB x-ray was obtained. Report was reviewed in its entirety. Findings include extensive retained fecal debris throughout the colon. Impression per Dr. Flores is nonspecific abdomen. Correlate for constipation. (Nitza Dangelo) Disposition <Juan Beasley - Last Filed: 02/28/21 11:59> Is patient prescribed a controlled substance at d/c from ED?: No Time of Disposition: 17:52 <Nitza Dangelo - Last Filed: 02/28/21 20:39> Clinical Impression: Constipation, Abdominal pain Disposition: HOME SELF-CARE Condition: Stable Instructions (If sedation given, give patient instructions): Constipation (ED), Fleet Enema (ED) Additional Instructions: Remember to increase fluids. Remain active. May take Tylenol or Motrin for discomfort. Obtain Colace take twice daily for 3-5 days. May repeat Fleet enema in 24 hours if necessary. Return to the emergency department with any new, worsening, or concerning symptoms. Referrals: Dora Loaiza MD [Primary Care Provider] - 1-2 days
[2021-02-28 12:26] LABS: Basophils # (A) 0.1 k/uL (0-0.2); Basophils % (A) 1 %; Eosinophils # (A) 0.2 k/uL (0-0.7); Eosinophils % (A) 2 %; HCT 43.3 % (34.0-46.0); HGB 14.2 gm/dL (11.4-16.0); Lymphocytes # (A) 1.6 k/uL (1.0-4.8); Lymphocytes % (A) 14 %; MCH 30.4 pg (25.0-35.0); MCHC 32.8 g/dL (31.0-37.0); MCV 92.6 fL (80.0-100.0); Monocytes # (A) 0.4 k/uL (0-1.0); Monocytes % (A) 4 %; Neutrophils % (A) 79 %; Platelet Count 307 k/uL (150-450); RBC 4.67 m/uL (3.80-5.40); RDW 12.7 % (11.5-15.5); WBC 11.4 k/uL (3.8-10.6)
[2021-02-28 12:38] LABS: ALT 16 U/L (4-34); AST 22 U/L (14-36); African American GFR (CKD) >90 (>60 ml/min/1.73 sqM); Albumin 4.4 g/dL (3.5-5.0); Alkaline Phosphatase 87 U/L (38-126); Anion Gap 9 mmol/L; Blood Urea Nitrogen 7 mg/dL (7-17); Calcium 9.4 mg/dL (8.4-10.2); Carbon Dioxide 26 mmol/L (22-30); Chloride 104 mmol/L (98-107); Glucose 116 mg/dL (74-99); Lipase 48 U/L (23-300); Non-African American GFR(CKD) >90 (>60 ml/min/1.73 sqM); Potassium 4.1 mmol/L (3.5-5.1); Sodium 139 mmol/L (137-145); Total Bilirubin 0.5 mg/dL (0.2-1.3); Total Protein 7.7 g/dL (6.3-8.2)
--- NOTE | 2021-02-28 12:54 | XR ---
EXAMINATION TYPE: XR KUB DATE OF EXAM: 02/28/2021 COMPARISON: NONE HISTORY: Constipation TECHNIQUE: One view abdominal series FINDINGS: The osseous structures are intact. The bowel gas pattern is nonspecific. Extensive retained fecal de bris throughout the colon. Air is seen within small bowel. Surgical clips in the right upper quadrant . Hypertrophic arthropathy of the hip joints. IMPRESSION: 1. Nonspecific abdomen. Correlate for constipation.
[2021-02-28 15:29] LABS: Appearance,Urine Cloudy (Clear); Bacteria,Urine Rare /hpf; Bilirubin,Urine Negative (Negative); Blood,Urine Negative (Negative); Color,Urine Yellow; Glucose,Urine (UA) Negative (Negative); Hyaline Casts,Urine 1 /lpf (0-2); Ketones,Urine Trace (Negative); Leukocyte Esterase,Urine Negative (Negative); Mucus,Urine Many /hpf; Nitrite,Urine Negative (Negative); Protein,Urine Trace (Negative); RBC,Urine 2 /hpf (0-5); Specific Gravity,Urine 1.024 (1.001-1.035); Squamous Epithelial Cell,Urine 1 /hpf (0-4); Urobilinogen,Urine <2.0 mg/dL (<2.0); WBC,Urine 1 /hpf (0-5)
[2021-02-28] MEDS ORDERED: DOCUSATE 100 MG CAP PO STA (17:24)
[2021-02-28] MEDS ORDERED: ACETAMINOPHEN TAB 500 MG TAB PO STA (17:24)
[2021-02-28] MEDS ORDERED: NA PHOS,M-B/NA PHOS,DI-BA 133 ML ENEMA RECTAL STA (17:52)
[2021-02-28 18:27] VITALS: BP 117/87; PULSE 91; RESP 16
== END 2021-02-28 18:26 | disposition home or self-care (01) ==
LOC: EC 09:21
DX: K59.00 Constipation, unspecified (principal); K21.9 Gastro-esophageal reflux disease without esophagitis; F32.9 Major depressive disorder, single episode, unspecified; F41.9 Anxiety disorder, unspecified; Z79.890 Hormone replacement therapy; Z79.899 Other long term (current) drug therapy; Z90.49 Acquired absence of other specified parts of digestive tract; Z88.3 Allergy status to other anti-infective agents
CPT/HCPCS: 36415; 74018; 80053; 81001; 81025; 83690; 85025; 99284

== ENCOUNTER 2021-11-17 22:58 | Emergency (ER) | payer MEDICARE, OTHER ==
[2021-11-17 23:39] VITALS: RESP 20; TEMP 98.1
[2021-11-18] MEDS ORDERED: FAMOTIDINE 20 MG TAB PO STA (00:34)
[2021-11-18] MEDS ORDERED: ONDANSETRON ODT 4 MG TAB PO STA (00:34)
[2021-11-18] MEDS ORDERED: diphenhydrAMINE 50 MG CAP PO STA (00:34)
[2021-11-18] MEDS ORDERED: predniSONE 20 MG TAB PO STA (00:34)
--- NOTE | 2021-11-18 00:38 | ED ---
General Adult HPI - General Chief complaint: Allergic Reaction Stated complaint: allergic reaction Time Seen by Provider: 11/18/21 00:30 Source: patient, RN notes reviewed Mode of arrival: ambulatory Limitations: no limitations - History of Present Illness Initial comments: 35-year-old female presents to the emergency department for evaluation of possib le ALLERGIC reaction. States proximately an hour ago she developed facial redness throat tightness and chest discomfort after taking 2 sips of infiltrate. States she had hives on her shortly thereafter. Take Zyrtec at home prior to arrival with improvement. States she continues to have sensation of tingling around her mouth and some nausea. Denies any fever, chills, difficulty breathing, difficulty swallowing, or rash at this time. - Related Data Home Medications Medication Instructions Recorded Confirmed Cetirizine HCl [Zyrtec] 10 mg PO DAILY 05/12/18 07/13/20 Cholestyramine/Aspartame [Questran 210 gm PO DAILY 05/12/18 07/13/20 Light Powder] Norgestimate-Ethinyl Estradiol 1 tab PO DAILY 05/12/18 07/13/20 [Ortho Tri-Cyclen 28 Tablet] Levothyroxine Sodium [Synthroid] 75 mcg PO DAILY 06/21/20 07/13/20 Omeprazole 20 mg PO DAILY 06/21/20 07/13/20 clonazePAM [KlonoPIN] 0.5 mg PO HS 06/21/20 07/13/20 Allergies Allergy/AdvReac Type Severity Reaction Status Date / Time terbinafine [From Lamisil] Allergy Rash/Hives Verified 11/17/21 23:38 diazepam [From Valium] AdvReac Rapid Verified 11/17/21 23:38 Heart Rate Review of Systems ROS Statement: Those systems with pertinent positive or pertinent negative responses have been documented in the HPI. ROS Other: All systems not noted in ROS Statement are negative. Past Medical History Past Medical History: GERD/Reflux, Thyroid Disorder Additional Past Medical History / Comment(s): DUMPING SYNDROME History of Any Multi-Drug Resistant Organisms: None Reported Past Surgical History: Cholecystectomy, Orthopedic Surgery Additional Past Surgical History / Comment(s): right foot surgery, eye surgery, RT ACHILLES SX Past Anesthesia/Blood Transfusion Reactions: No Reported Reaction Past Psychological History: Anxiety, Depression Smoking Status: Never smoker Past Alcohol Use History: Occasional Past Drug Use History: None Reported - Past Family History Mother Family Medical History: Cancer Father Family Medical History: Cancer General Exam Limitations: no limitations (Developed, well-nourished female in no acute distress. Initial temperature 98.1, pulse 99, respirations 20, blood pressure 155/98, pulse ox 100% on room air.) General appearance: alert, in no apparent distress ENT exam: Present: normal exam, normal oropharynx, mucous membranes moist Expanded Mouth exam: Present: normal external inspection, tongue normal. Absent: drooling, muffled voice Throat exam: normal inspection. negative: tonsillar erythema, tonsillomegaly Neck exam: Present: normal inspection. Absent: tenderness, meningismus, lymphadenopathy Respiratory exam: Present: normal lung sounds bilaterally. Absent: respiratory distress, wheezes, rales, rhonchi, stridor Cardiovascular Exam: Present: regular rate, normal rhythm, normal heart sounds. Absent: systolic murmur, diastolic murmur, rubs, gallop, clicks GI/Abdominal exam: Present: soft, normal bowel sounds. Absent: distended, tenderness, guarding, rebound, rigid Extremities exam: Present: normal inspection, full ROM, normal capillary refill. Absent: tenderness, pedal edema, joint swelling, calf tenderness Neurological exam: Present: alert, oriented X3, CN II-XII intact Psychiatric exam: Present: normal affect, normal mood Skin exam: Present: warm, dry, intact, normal color. Absent: rash Course Vital Signs 11/17/21 11/18/21 11/18/21 23:34 00:22 01:35 Temperature 98.1 F Pulse Rate 79 70 Respiratory 20 Rate Blood Pressure 155/98 141/74 O2 Sat by Pulse 100 99 100 Oximetry Medical Decision Making - Medical Decision Making 35-year-old female presents to the emergency Department with complaints of possible ALLERGIC reaction. Initial complaints include tingling around her mouth. Endorses resolution of previous symptoms including facial redness, urticarial rash on bilateral upper extremities, and shortness of breath. Upon exam, she is well-appearing and in no acute distress. Physical exam findings are unremarkable. Lung sounds are clear to auscultation. There is no evidence of increased work of breathing. Vital signs are stable. Patient is given oral Benadryl, Pepcid, and prednisone. She is monitored for an hour with no return of symptoms. She will be discharged home to follow up with her PCP for a recheck. Encouraged to take Benadryl or Zyrtec if needed. Return parameters were discussed in detail. Patient verbalizes understanding and agrees with this plan. Attending: Brijesh. Disposition Clinical Impression: Allergic reaction Disposition: HOME SELF-CARE Condition: Stable Instructions (If sedation given, give patient instructions): General Allergic Reaction (ED) Additional Instructions: May take Benadryl if needed for itching. Drink plenty of water. Follow-up with your PCP for a recheck if needed. Return to the emergency department with any new, worsening, or concerning symptoms such as chest tightness or difficulty breathing. Is patient prescribed a controlled substance at d/c from ED?: No Referrals: Dora Loaiza MD [Primary Care Provider] - 1-2 days Time of Disposition: 01:30
[2021-11-18 01:36] VITALS: BP 141/74; PULSE 70
== END 2021-11-18 01:39 | disposition home or self-care (01) ==
LOC: EC 22:58
DX: T78.40XA Allergy, unspecified, initial encounter (principal); K21.9 Gastro-esophageal reflux disease without esophagitis; Z79.83 Long term (current) use of bisphosphonates; E07.9 Disorder of thyroid, unspecified; Z79.899 Other long term (current) drug therapy; Z88.8 Allergy status to other drugs, medicaments and biological substances
CPT/HCPCS: 99283; J7512

== ENCOUNTER → 2021-11-30 | Outpatient (CLI) | payer MEDICARE, OTHER | END | disposition home or self-care (01) | LOC: LABWHC1 10:45 | PROVIDERS: ATTEND Physician Assistant | DX: L50.9 Urticaria, unspecified (principal); Z91.018 Allergy to other foods | CPT/HCPCS: 36415; 86003 ==

== ENCOUNTER 2023-08-10 10:33 | Emergency (ER) | payer MEDICARE, OTHER ==
[2023-08-10 11:13] VITALS: TEMP 97.6
--- NOTE | 2023-08-10 11:17 | ED ---
Abdominal Pain HPI - General Source: patient, RN notes reviewed Mode of arrival: ambulatory Limitations: no limitations <Tayler Jacinto - Last Filed: 08/10/23 11:15> - General Source: patient, RN notes reviewed Mode of arrival: ambulatory Limitations: no limitations - History of Present Illness MD Complaint: abdominal pain <Kerry Diallo - Last Filed: 08/12/23 06:41> - General Chief Complaint: Abdominal Pain Stated Complaint: abd pain Time Seen by Provider: 08/10/23 10:56 - History of Present Illness Initial Comments: Tea balderas is a 37-year-old female with a history of cholecystectomy since emergency department chief complaint of abdominal pain over the past 6 days. She states that the pain is worse after she eats food and has had little consump tion over the past week. She denies fevers, nausea, vomiting, diarrhea, constipation. (Tayler Jacinto) This is a 37-year-old female who presents to the emergency department for abdominal pain. States that this is in the left upper quadrant. Pain gets much worse right after eating, but is still present at rest. Pain is largely in the left upper quadrant. Denies any fever/chills. Also denies any nausea, vomiting, diarrhea, or constipation. She no longer has her gallbladder. She initially went to urgent care and was advised to come to the emergency department for further evaluation and testing. (Kerry Diallo) - Related Data Home Medications Medication Instructions Recorded Confirmed Cetirizine HCl [Zyrtec] 10 - 20 mg PO BID PRN 05/12/18 08/10/23 Cholestyramine/Aspartame [Questran 8 gm PO DAILY 05/12/18 08/10/23 Light Powder] clonazePAM [KlonoPIN] 0.5 mg PO HS PRN 06/21/20 08/10/23 Albuterol Inhaler [Ventolin Hfa 1 - 2 puff INHALATION RT-Q6H PRN 08/10/23 08/10/23 Inhaler] Azelastine HCl [Astelin Nasal 1 spray EA NOSTRIL BID 08/10/23 08/10/23 [place]] Ethinyl Estradiol/Drospirenone 1 tab PO DAILY 08/10/23 08/10/23 [Manisha 28 Tablet] Famotidine [Pepcid] 40 mg PO DAILY 08/10/23 08/10/23 Fluticasone Nasal [place] [Flonase 1 spray EA NOSTRIL DAILY 08/10/23 08/10/23 Nasal [place]] Hydroxychloroquine Sulfate 400 mg PO DAILY 08/10/23 08/10/23 [Plaquenil] Levothyroxine Sodium [Synthroid] 100 mcg PO SUWETHFRSA 08/10/23 08/10/23 Levothyroxine Sodium [Synthroid] 200 mcg PO MOTU 08/10/23 08/10/23 Montelukast [Singulair] 10 mg PO DAILY 08/10/23 08/10/23 Omalizumab [Xolair] 300 mg SQ Q30D 08/10/23 08/10/23 Ondansetron Odt [Zofran Odt] 4 mg PO Q6H PRN 08/10/23 08/10/23 Propranolol [Inderal] 20 mg PO DIRECTED 08/10/23 08/10/23 Topiramate 100 mg PO DAILY 08/10/23 08/10/23 Previous Rx's Medication Instructions Recorded Hyoscyamine Sulfate [Levsin] 0.125 mg PO Q4-6H PRN #30 tab 08/10/23 Pantoprazole Sodium 40 mg PO DAILY 20 Days #20 tab 08/10/23 Allergies Allergy/AdvReac Type Severity Reaction Status Date / Time terbinafine [From Lamisil] Allergy Rash/Hives Verified 08/10/23 14:31 diazepam [From Valium] AdvReac Rapid Verified 08/10/23 14:31 Heart Rate Review of Systems ROS Other: All systems not noted in ROS Statement are negative. <Tayler Jacinto - Last Filed: 08/10/23 11:15> ROS Other: All systems not noted in ROS Statement are negative. <Kerry Diallo - Last Filed: 08/12/23 06:41> ROS Statement: Those systems with pertinent positive or pertinent negative responses have been documented in the HPI. Past Medical History Past Medical History: GERD/Reflux, Thyroid Disorder Additional Past Medical History / Comment(s): DUMPING SYNDROME History of Any Multi-Drug Resistant Organisms: None Reported Past Surgical History: Cholecystectomy, Orthopedic Surgery Additional Past Surgical History / Comment(s): right foot surgery, eye surgery, RT ACHILLES SX Past Anesthesia/Blood Transfusion Reactions: No Reported Reaction Past Psychological History: Anxiety, Depression Smoking Status: Never smoker Past Alcohol Use History: Occasional Past Drug Use History: None Reported - Past Family History Mother Family Medical History: Cancer Father Family Medical History: Cancer <Tayler Jacinto - Last Filed: 08/10/23 11:15> General Exam Limitations: no limitations <Tayler Jacinto - Last Filed: 08/10/23 11:15> Limitations: no limitations General appearance: alert, in no apparent distress Head exam: Present: atraumatic, normocephalic, normal inspection Respiratory exam: Present: normal lung sounds bilaterally. Absent: respiratory distress, wheezes, rales, rhonchi, stridor Cardiovascular Exam: Present: regular rate, normal rhythm, normal heart sounds. Absent: systolic murmur, diastolic murmur, rubs, gallop, clicks GI/Abdominal exam: Present: soft, tenderness (LUQ), normal bowel sounds. Absent: distended Neurological exam: Present: alert, oriented X3, CN II-XII intact Psychiatric exam: Present: normal affect, normal mood Skin exam: Present: warm, dry, intact, normal color. Absent: rash <Kerry Diallo - Last Filed: 08/12/23 06:41> - General Exam Comments Initial Comments: Visual Physical Exam Vital signs reviewed General: Well-appearing, nontoxic, no acute distress. Head: Normocephalic, atraumatic Eyes: PERRLA, EOMI ENT: Airway patent Chest: Nonlabored breathing Skin: No visual rash, normal skin tone Neuro: Alert and oriented 3 Musculoskeletal: No gross abnormalities (Stieler,Tayler) Course Vital Signs 08/10/23 08/10/23 10:42 17:14 Temperature 97.6 F Pulse Rate 76 90 Respiratory 18 16 Rate Blood Pressure 153/100 144/93 O2 Sat by Pulse 98 99 Oximetry Medical Decision Making <Tayler Jacinto - Last Filed: 08/10/23 11:15> - Lab Data Result diagrams: 08/10/23 15:00 08/10/23 12:06 - Radiology Data Radiology results: report reviewed, image reviewed <Kerry Diallo - Last Filed: 04/28/24 06:41> - Medical Decision Making I completed the quick note portion of this chart signed Tayler Jacinto PA-C (Tayler Jacinto) This is a 37 year old female who presents to the emergency department for abdominal pain. Was pt. sent in by a medical professional or institution? @ -Urgent care Did you speak to anyone other than the patient for history? @ -No Did you review nursing and triage notes? @ -Yes, and I agree, it is accurate with regards to the patient's symptoms. Were old charts reviewed? @ -No Differential Diagnosis? @ -Differential Abdominal Pain Women: Appendicitis, Cholecystitis, diverticulosis, ischemic bowel, pancreatitis, hepatitis, UTI, gastroenteritis, AAA, incarcerated hernia, bowel obstruction, constipation, inflammatory bowel, hepatitis, peptic ulcer disease, splenic infarction, perforated viscus, vulvitis, ovarian torsion, PID, kidney stone, placenta abruption, this is not meant to be an all-inclusive list EKG interpreted by me (3pts min.)? @ -Not obtained X-rays interpreted by me (1pt min.)? @ -KUB x-ray obtained. My interpretation identifies no evidence of bowel loop dilation. CT interpreted by me (1pt min.)? @ -CT scan of the abdomen and pelvis obtained. My interpretation identifies no evidence of bowel wall thickening or free air. U/S interpreted by me (1pt. min.)? @ -Not obtained What testing was considered but not performed? (CT, X-rays, U/S, labs)? Why? @ -None What meds were considered but not given? Why? @ -None Did you discuss the management of the patient with other professionals? @ -No Did you reconcile home meds? @ -No Was smoking cessation discussed for >3mins.? @ -No Was critical care preformed (if so, how long)? @ -No Were there social determinants of health that impacted care today? How? (Homelessness, low income, unemployed, alcoholism, drug addiction, transportation, low edu. Level, literacy, decrease access to med. care, care home, rehab)? @ -No Was there de-escalation of care discussed even if they declined? (Discuss DNR or withdrawal of care, Hospice)? @ -No What co-morbidities impacted this encounter? (DM, HTN, Smoking, COPD, CAD, Cancer, CVA, Hep., AIDS, mental health diagnosis, sleep apnea, morbid obesity)? @ -Dumping syndrome, GERD Was patient admitted / discharged? @ -Discharged. Lab work unremarkable. Urinalysis negative for signs of infection. KUB x-ray obtained revealing no acute process. Discussed additional workup with a CT scan for further evaluation. Patient requests to proceed. CT scan of the abdomen pelvis reveals no acute process. Given the location of her pain and association with food, it could be related to gastritis or a peptic ulcer. Prescription for pantoprazole and Levsin provided with dosing instru ctions reviewed. Advised following a bland and low-fat diet for the next several days and having close follow-up with her primary care provider. Patient discharged home in stable condition. Undiagnosed new problem with uncertain prognosis? @ -None Drug Therapy requiring intensive monitoring for toxicity (Heparin, Nitro, Insulin, Cardizem)? @ -None Were any procedures done? @ -None Diagnosis/symptom? @ -Abdominal pain Acute, or Chronic, or Acute on Chronic? @ -Acute Uncomplicated (without systemic symptoms) or Complicated (systemic symptoms)? @ -Uncomplicated Side effects of treatment? @ -None Exacerbation, Progression, or Severe Exacerbation] @ -Not applicable Poses a threat to life or bodily function? @ -No Return precautions reviewed in depth, the patient is instructed to return to the emergency department with any new, worsening, or concerning symptoms. Patient verbalized understanding. This case was discussed in detail with the attending ED physician, Dr. Espino. Presentation, findings, and treatment plan discussed in detail as well. (Kerry Diallo) - Lab Data Lab Results 08/10/23 08/10/23 08/10/23 Range/Units 12:06 15:00 15:28 WBC 9.3 (3.8-10.6) k/uL RBC 4.41 (3.80-5.40) m/uL Hgb 12.8 (11.4-16.0) gm/dL Hct 39.8 (34.0-46.0) % MCV 90.2 (80.0-100.0) fL MCH 29.0 (25.0-35.0) pg MCHC 32.2 (31.0-37.0) g/dL RDW 12.8 (11.5-15.5) % Plt Count 285 (150-450) k/uL MPV 6.9 Neutrophils % 70 % Lymphocytes % 24 % Monocytes % 4 % Eosinophils % 1 % Basophils % 1 % Neutrophils # 6.5 (1.3-7.7) k/uL Lymphocytes # 2.2 (1.0-4.8) k/uL Monocytes # 0.4 (0-1.0) k/uL Eosinophils # 0.1 (0-0.7) k/uL Basophils # 0.1 (0-0.2) k/uL Sodium 138 (137-145) mmol/L Potassium 4.8 (3.5-5.1) mmol/L Chloride 108 H (98-107) mmol/L Carbon Dioxide 21 L (22-30) mmol/L Anion Gap 9 mmol/L BUN 6 L (7-17) mg/dL Creatinine 0.56 (0.52-1.04) mg/dL Est GFR (CKD-EPI)AfAm >90 (>60 ml/min/1.73 sqM) Est GFR (CKD-EPI)NonAf >90 (>60 ml/min/1.73 sqM) Glucose 92 (74-99) mg/dL Calcium 9.5 (8.4-10.2) mg/dL Total Bilirubin 0.6 (0.2-1.3) mg/dL AST 31 (14-36) U/L ALT 18 (4-34) U/L Alkaline Phosphatase 110 (38-126) U/L Total Protein 7.4 (6.3-8.2) g/dL Albumin 4.0 (3.5-5.0) g/dL Amylase 76 (30-110) U/L Lipase 68 (23-300) U/L Urine Color Colorless Urine Appearance Clear (Clear) Urine pH 6.0 (5.0-8.0) Ur Specific [place] 1.001 (1.001-1.035) Urine Protein Negative (Negative) Urine Glucose (UA) Negative (Negative) Urine Ketones Negative (Negative) Urine Blood Negative (Negative) Urine Nitrite Negative (Negative) Urine Bilirubin Negative (Negative) Urine Urobilinogen <2.0 (<2.0) mg/dL Ur Leukocyte Esterase Negative (Negative) Urine HCG, Qual (Not Detectd) 08/10/23 Range/Units 15:28 WBC (3.8-10.6) k/uL RBC (3.80-5.40) m/uL Hgb (11.4-16.0) gm/dL Hct (34.0-46.0) % MCV (80.0-100.0) fL MCH (25.0-35.0) pg MCHC (31.0-37.0) g/dL RDW (11.5-15.5) % Plt Count (150-450) k/uL MPV Neutrophils % % Lymphocytes % % Monocytes % % Eosinophils % % Basophils % % Neutrophils # (1.3-7.7) k/uL Lymphocytes # (1.0-4.8) k/uL Monocytes # (0-1.0) k/uL Eosinophils # (0-0.7) k/uL Basophils # (0-0.2) k/uL Sodium (137-145) mmol/L Potassium (3.5-5.1) mmol/L Chloride (98-107) mmol/L Carbon Dioxide (22-30) mmol/L Anion Gap mmol/L BUN (7-17) mg/dL Creatinine (0.52-1.04) mg/dL Est GFR (CKD-EPI)AfAm (>60 ml/min/1.73 sqM) Est GFR (CKD-EPI)NonAf (>60 ml/min/1.73 sqM) Glucose (74-99) mg/dL Calcium (8.4-10.2) mg/dL Total Bilirubin (0.2-1.3) mg/dL AST (14-36) U/L ALT (4-34) U/L Alkaline Phosphatase (38-126) U/L Total Protein (6.3-8.2) g/dL Albumin (3.5-5.0) g/dL Amylase (30-110) U/L Lipase (23-300) U/L Urine Color Urine Appearance (Clear) Urine pH (5.0-8.0) Ur Specific [place] (1.001-1.035) Urine Protein (Negative) Urine Glucose (UA) (Negative) Urine Ketones (Negative) Urine Blood (Negative) Urine Nitrite (Negative) Urine Bilirubin (Negative) Urine Urobilinogen (<2.0) mg/dL Ur Leukocyte Esterase (Negative) Urine HCG, Qual Not Detected (Not Detectd) Disposition <Tayler Jacinto - Last Filed: 08/10/23 11:15> Is patient prescribed a controlled substance at d/c from ED?: No Time of Disposition: 17:03 <Kerry Diallo - Last Filed: 08/12/23 06:41> Clinical Impression: Abdominal pain Disposition: HOME SELF-CARE Instructions (If sedation given, give patient instructions): Abdominal Pain (ED) Additional Instructions: Return to the emergency department with any new, worsening, or concerning symptoms. Take the pantoprazole daily. Take this 30 to 60 minutes before eating or taking other medication for the optimal effect. You can take the Levsin every 4-6 hours as needed for GI upset. Take Tylenol as well. Try to follow a bland and low-fat diet for the next several days to see if that improves symptoms. Follow up with your primary care provider in 1-2 days. Prescriptions: Hyoscyamine Sulfate [Levsin] 0.125 mg PO Q4-6H PRN #30 tab PRN Reason: Gi Upset Pantoprazole Sodium 40 mg PO DAILY 20 Days #20 tab Referrals: Dora Loaiza MD [Primary Care Provider] - 1-2 days
--- NOTE | 2023-08-10 11:59 | XR ---
EXAMINATION TYPE: XR KUB DATE OF EXAM: 08/10/2023 Comparison: 02/28/2021 Clinical History: 37-year-old female abdominal pain Findings: Lung bases are clear. No evidence for free intraperitoneal air. Cholecystectomy clips. No dilated sma ll bowel or air-fluid levels. No significant stool burden. No suspicious calcifications seen. Impression: No evidence for free air or bowel obstruction. No significant stool burden.
[2023-08-10 12:43] LABS: ALT 18 U/L (4-34); AST 31 U/L (14-36); African American GFR (CKD) >90 (>60 ml/min/1.73 sqM); Alkaline Phosphatase 110 U/L (38-126); Amylase 76 U/L (30-110); Anion Gap 9 mmol/L; Blood Urea Nitrogen 6 mg/dL (7-17); Calcium 9.5 mg/dL (8.4-10.2); Carbon Dioxide 21 mmol/L (22-30); Chloride 108 mmol/L (98-107); Glucose 92 mg/dL (74-99); Lipase 68 U/L (23-300); Non-African American GFR(CKD) >90 (>60 ml/min/1.73 sqM); Potassium 4.8 mmol/L (3.5-5.1); Sodium 138 mmol/L (137-145); Total Bilirubin 0.6 mg/dL (0.2-1.3); Total Protein 7.4 g/dL (6.3-8.2)
[2023-08-10 15:11] LABS: Basophils # (A) 0.1 k/uL (0-0.2); Basophils % (A) 1 %; Eosinophils # (A) 0.1 k/uL (0-0.7); Eosinophils % (A) 1 %; HCT 39.8 % (34.0-46.0); HGB 12.8 gm/dL (11.4-16.0); Lymphocytes # (A) 2.2 k/uL (1.0-4.8); Lymphocytes % (A) 24 %; MCHC 32.2 g/dL (31.0-37.0); MCV 90.2 fL (80.0-100.0); Mean Platelet Volume 6.9; Monocytes # (A) 0.4 k/uL (0-1.0); Monocytes % (A) 4 %; Neutrophils # (A) 6.5 k/uL (1.3-7.7); Neutrophils % (A) 70 %; Platelet Count 285 k/uL (150-450); RBC 4.41 m/uL (3.80-5.40); RDW 12.8 % (11.5-15.5); WBC 9.3 k/uL (3.8-10.6)
[2023-08-10] MEDS: SODIUM CHLORIDE 0.9% 1,000 ML IV STA (15:14)
[2023-08-10] MEDS: KETOROLAC 15 MG/ML 1 ML VIAL IVP STA (15:15)
[2023-08-10] MEDS: FAMOTIDINE 20 MG/2 ML VIAL IV STA (15:16)
[2023-08-10 15:45] LABS: Appearance,Urine Clear (Clear); Bilirubin,Urine Negative (Negative); Blood,Urine Negative (Negative); Color,Urine Colorless; Glucose,Urine (UA) Negative (Negative); Ketones,Urine Negative (Negative); Leukocyte Esterase,Urine Negative (Negative); Nitrite,Urine Negative (Negative); Protein,Urine Negative (Negative); Specific Gravity,Urine 1.001 (1.001-1.035); Urobilinogen,Urine <2.0 mg/dL (<2.0)
--- NOTE | 2023-08-10 16:50 | CT ---
EXAMINATION TYPE: CT abdomen pelvis w con DATE OF EXAM: 08/10/2023 COMPARISON: 05/12/2018 HISTORY: left sided abdominal pain CT DLP: 2019.9 mGycm Automated exposure control for dose reduction was used. TECHNIQUE: Helical acquisition of images was performed from the lung bases through the pelvis. CONTRAST: Performed without Oral Contrast and with IV Contrast, patient injected with 100 ml mL of Isovue 300. FINDINGS: The lung bases are clear. There is surgical absence of the gallbladder. There is no biliary ductal dilatation. There is no focal mass or organomegaly involving the liver, pancreas, spleen or adrenal glands. There is no solid renal mass or hydronephrosis and there is homogeneous contrast enhancement of the r enal parenchyma there is a simple cortical cyst of the left kidney.. The caliber the abdominal aorta is normal is no retroperitoneal adenopathy or hemorrhage. The bowel loops are normal in caliber and there is no evidence of dilatation or obstruction. No infla mmatory changes are identified in the bowel wall or mesentery. There is no free intraperitoneal air or fluid. No pelvic mass, free fluid, abscess or adenopathy. There is a small periumbilical hernia containing only fat. The osseous structures are intact IMPRESSION: No acute changes within the abdomen and pelvis. No significant amount is seen.
[2023-08-10 17:43] VITALS: BP 144/93; PULSE 90; RESP 16
== END 2023-08-10 17:18 | disposition home or self-care (01) ==
LOC: EC 10:33
DX: R10.12 Left upper quadrant pain (principal); K91.1 Postgastric surgery syndromes; K21.9 Gastro-esophageal reflux disease without esophagitis; Z88.8 Allergy status to other drugs, medicaments and biological substances; Z90.49 Acquired absence of other specified parts of digestive tract
CPT/HCPCS: 36415; 80053; 82150; 83690; 85025; 81003; 81025; 74018; 74177; 99284; 96374; 96375; 96361; J3490; J1885; Q9967